=== PATIENT | male | born 2000 | race Caucasian/White ===

== ENCOUNTER 2018-11-29 15:24 | Emergency (ER) | payer SELFPAY ==
[2018-11-29 15:35] VITALS: BP 124/54; PULSE 78; TEMP 98.5; BMI 20.9
== END 2018-11-29 16:34 | disposition left against medical advice (07) ==
LOC: JERFT 15:24
DX: Z53.21 Procedure and treatment not carried out due to patient leaving prior to being seen by health care provider (principal)
CPT/HCPCS: 99281-25

== ENCOUNTER 2018-12-04 06:52 | Emergency (ER) | payer OTHER ==
[2018-12-04 08:00] VITALS: BP 102/47; PULSE 59; TEMP 97.9; BMI 20.9
--- NOTE | 2018-12-04 08:44 | PDOC ---
History of Present Illness - General Chief Complaint: Chest Pain Stated Complaint: NECK/CHEST PAIN Time Seen by Provider: 12/04/18 08:13 History Source: Patient Exam Limitations: No Limitations Past History - Past Medical History Allergies/Adverse Reactions: Allergies Allergy/AdvReac Type Severity Reaction Status Date / Time No Known Allergies Allergy Verified 12/04/18 08:00 COPD: No CHF: No - Immunization History Immunization Up to Date: Yes - Psycho Social/Smoking Cessation Hx Smoking History: Never smoked Have you smoked in the past 12 months: No Information on smoking cessation initiated: No Hx Alcohol Use: No Drug/Substance Use Hx: No *Physical Exam - Vital Signs Last Vital Signs Temp Pulse Resp BP Pulse Ox 97.9 F 59 L 17 102/47 L 100 12/04/18 07:56 12/04/18 07:56 12/04/18 07:56 12/04/18 07:56 12/04/18 07:56 - Physical Exam General Appearance: No: Apparent Distress Neck: positive: Supple, Other (mild L upper traps tenderness). negative: Rigid , Decreased range of motion, Tender midline Respiratory/Chest: positive: Lungs Clear, Normal Breath Sounds. negative: Chest Tender, Respiratory Distress Gastrointestinal/Abdominal: positive: Normal Bowel Sounds, Soft. negative: Tender, Distended, Guarding, Rebound Neurologic: positive: Alert ED Treatment Course - RADIOLOGY Radiology Studies Ordered: Category Date Time Status CHEST PA & LAT [RAD] Stat Radiology 12/04/18 08:24 Completed Medical Decision Making - Medical Decision Making 18 y/o M with no sig pmh presents with constant pain under L side of chest radiating along L neck, worse with movement, x 1 week. Occasionally, will also feels aches in B/L shoulders and legs. Went to [facility] to get evaluated for this 2 days ago and has bloodwork done which was unremarkable, was advised to f/u with his PCP. Patient has appt with his PCP today at 1:30 PM, but as pain got worse overnight, came to ED. Denies fever, URI sxs, sob, abd pain, vomiting, rashes, dizziness, palpitations. Denies recent travel, recent surgeries, smoking or drug use. EKG: Sinus paula at 50 bpm, no ST-T changes CXR negative Sxs appear more MSK in nature Patient did not want meds here stable for dc 12/04/18 08:44 Discharge - Discharge Information Problems reviewed: Yes Clinical Impression/Diagnosis: Musculoskeletal chest pain Disposition: HOME - Admission No - Additional Discharge Information Prescription Drug Monitoring Program (I-STOP) results: I-STOP not reviewed - Follow up/Referral Referrals: Manny Baez MD [Primary Care Provider] - - Patient Discharge Instructions Patient Printed Discharge Instructions: DI for Chest Pain Additional Instructions: Thank you for choosing [facility]. It was a pleasure taking care of you. You may take Motrin 600 mg every 6 hours by mouth as needed for mild to moderate pain. Take Motrin with food. If you need pain medication for break through, you can take Tylenol Warm compresses may also help Please follow-up with your doctor today as scheduled Return to the Emergency Department if your symptoms worsen or persist or have other concerning symptoms. - Post Discharge Activity
--- NOTE | 2018-12-04 16:19 | EKG ---
Test Reason : Blood Pressure : / mmHG Vent. Rate : 050 BPM Atrial Rate : 050 BPM P-R Int : 106 ms QRS Dur : 088 ms QT Int : 434 ms P-R-T Axes : 008 056 058 degrees QTc Int : 395 ms SINUS BRADYCARDIA WITH SHORT WA EARLY REPOLARIZATION OTHERWISE NORMAL ECG NO PREVIOUS ECGS AVAILABLE Confirmed by URSULA KESSLER, TOÑA ([id number]) on 12/04/2018 4:19:24 PM Referred By: Confirmed By:TOÑA VERGARA MD
== END 2018-12-04 09:06 | disposition home or self-care (01) ==
LOC: JERFT 06:52 → JER 06:52 → JERFT 09:06
DX: R07.89 Other chest pain (principal)
CPT/HCPCS: 71046-TC-FY; 93005; 93010; 99281-25

== ENCOUNTER 2022-08-27 17:46 | Emergency (ER) | payer OTHER ==
[2022-08-27 17:58] VITALS: BP 119/53; PULSE 80; RESP 16; TEMP 98.2; BMI 24.3
[2022-08-27] MEDS ORDERED: KETOROLAC TROMETHAMINE 30 MG/1 ML VIAL IM ONE (18:56)
[2022-08-27] MEDS ORDERED: ACETAMINOPHEN 500 MG TABLET (FP) PO ONE (18:56)
[2022-08-27] MEDS ORDERED: ACETAMINOPHEN 500 MG TABLET (FP) ONE (18:57)
[2022-08-27] MEDS ORDERED: KETOROLAC TROMETHAMINE 30 MG/1 ML VIAL ONE (18:57)
== END 2022-08-27 19:58 | disposition home or self-care (01) ==
LOC: JERFT 17:46
PROC: 3E0233Z Introduction of Anti-inflammatory into Muscle, Percutaneous Approach (ICD-10-PCS; principal; 2022-08-27)
DX: S93.492A Sprain of other ligament of left ankle, initial encounter (principal); M25.572 Pain in left ankle and joints of left foot; W17.89XA Other fall from one level to another, initial encounter; X50.1XXA Overexertion from prolonged static or awkward postures, initial encounter; Y99.0 Civilian activity done for income or pay
CPT/HCPCS: 73610-TC-LT-FY; 99284-25